=== PATIENT | female | born 1980 | race Caucasian/White ===

== ENCOUNTER 2022-12-07 09:48 | Emergency (ER) | payer BC, SELFPAY ==
[2022-12-07 09:50] VITALS: BP 115/78; PULSE 69; RESP 18; O2SAT 98
--- NOTE | 2022-12-07 10:18 | DI.RAD_ITS ---
Exam(s) XR HAND LT COMPLETE EXAM: XR HAND LT COMPLETE CLINICAL HISTORY: dog bite hand and left 3rd digit. TECHNIQUE: 2D digital imaging was performed of the left hand. Three views were obtained. AP, later al and oblique views were obtained. COMPARISON: No exams were available for comparison FINDINGS: BONES: No acute fracture is present. No bony destructive lesion is seen. JOINTS: No dislocation present. SOFT TISSUE: Normal. IMPRESSION: Unremarkable radiographs of the left hand. DATA REPOSITORY: RADIATION DOSE DELIVERED:
--- NOTE | 2022-12-07 10:36 | DI.VRAD_ITS ---
PROCEDURE INFORMATION: Exam: XR Left Hand Exam date and time: 12/07/2022 10:20 AM Age: 41 years old Clinical indication: Injury or trauma; Other: Dog bit top of hand; Bite; Left TECHNIQUE: Imaging protocol: Radiologic exam of the Left hand. Views: 3 or more views. COMPARISON: No relevant prior studies available. FINDINGS: Bones/joints: No acute fracture or dislocation. Joint spaces are maintained. Soft tissues: No discrete radiopaque foreign body. IMPRESSION: No radiographic evidence of acute osseous injury. Dictated and Authenticated by: Denny Barney MD. Ordering:NEDA Solorzano MD
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
[2022-12-07] MEDS: Ibuprofen 600 MG TAB PO (11:05)
== END 2022-12-07 11:10 | disposition home or self-care (01) ==
PROVIDERS: Emergency Provider Physician Assistant
DX: S61.412A Laceration without foreign body of left hand, initial encounter (principal); W54.0XXA Bitten by dog, initial encounter
CPT/HCPCS: 12002; 99283; 73130; 99282